=== PATIENT | female | born 1975 | race African-American/Black ===

== ENCOUNTER 2016-09-05 16:47 | Outpatient (CLI) | payer MEDICAID, MEDICARE, SELFPAY | END 2016-09-05 16:48 | disposition home or self-care (01) | LOC: HPCALD 16:47 | PROVIDERS: ATTEND Physician Assistant | DX: Z01.419 Encounter for gynecological examination (general) (routine) without abnormal findings (principal) | CPT/HCPCS: 87480; 87491; 87510; 87591; 87660 ==